=== PATIENT | female | born 1970 | race Caucasian/White ===

== ENCOUNTER 2018-05-02 12:06 | Emergency (ER) | payer SELFPAY ==
[~2018-05-02] VITALS: Ht 149.9 cm; Wt 89.0 kg
[~2018-05-02 12:06] MED LIST: ALBU90AE INH; CEFD300C37 PO; DOXY100T PO; PRED10TA PO
[2018-05-02 12:16] VITALS: BP 115/72
[2018-05-02] MEDS ORDERED: DIPH,PERTUSS(ACELL),TET VAC/PF 0.5 ML IM-VACC ONE ×2 (12:32→13:00)
== END 2018-05-02 12:44 | disposition home or self-care (01) ==
LOC: ED 12:38
DX: T63.301A Toxic effect of unspecified spider venom, accidental (unintentional), initial encounter (principal); J45.909 Unspecified asthma, uncomplicated; Y92.9 Unspecified place or not applicable
CPT/HCPCS: 90471; 90715

== ENCOUNTER 2020-08-20 11:26 | Emergency (ER) | payer OTHER ==
[~2020-08-20] VITALS: Ht 149.9 cm; Wt 99.0 kg
[2020-08-20 11:31] VITALS: BP 148/88
--- NOTE | 2020-08-20 12:17 | NUR ---
Radhika PA at myself at bedside. No active COVID symptoms. Pt states anxiety from the vaccine 4 days ago. Pt is now calm, laying down and cooperative.
--- NOTE | 2020-08-20 12:44 | NUR ---
Lab at bedside.
[2020-08-20] MEDS ORDERED: LORazepam 1MG TABLET ONE (12:49)
[2020-08-20] MEDS ORDERED: LORazepam 1MG TABLET PO ONE (13:00)
--- NOTE | 2020-08-20 13:06 | NUR ---
Pt refuses ativan. Given sprite. Awaiting XRay and lab results.
[2020-08-20 13:16] LABS: BASOPHILS % (AUTO) 1 % (0-1); EOSINOPHILS % (AUTO) 2 % (1-7); LYMPHOCYTES % (AUTO) 42 % (22-44); MEAN CORPUSCULAR HEMOGLOBIN 27.9 pg (27.0-34.8); MEAN PLATELET VOLUME 10.2 fL (7.4-10.4); MONOCYTES % (AUTO) 10 % (2-9); NEUTROPHILS % (AUTO) 45 % (42-75); PLATELET COUNT 131 x10^3/uL (130-400); RED BLOOD COUNT 5.12 x10^6/uL (3.82-5.3); RED CELL DISTRIBUTION WIDTH 16.3 % (9.6-15.2)
[2020-08-20 13:21] LABS: ALANINE AMINOTRANSFERASE 33 U/L (12-78); ALBUMIN 3.3 g/dL (3.4-5.0); ANION GAP 5 mmol/L (5-15); CALCIUM 8.9 mg/dL (8.5-10.1); CHLORIDE 109 mmol/L (98-107); CREATININE 0.64 mg/dL (0.55-1.02)
[2020-08-20 13:23] LABS: ALKALINE PHOSPHATASE 59 U/L (45-117); BILIRUBIN,TOTAL 0.4 mg/dL (0.2-1.0); TOTAL PROTEIN 6.9 g/dL (6.4-8.2)
--- NOTE | 2020-08-20 13:38 | NUR ---
Pt left without signing paperwork. MD Dr. Abernathy aware.
[2020-08-20 13:52] LABS: MD MORPH REVIEW ONLY
[2020-08-20 13:53] LABS: <PLATELET ESTIMATE> ADEQUATE; <RBC MORPHOLOGY> NORMAL; LARGE PLATELETS 1+
== END 2020-08-20 13:50 | disposition home or self-care (01) ==
LOC: ED 13:32
DX: F41.1 Generalized anxiety disorder (principal); J45.909 Unspecified asthma, uncomplicated
CPT/HCPCS: 36415; 71045; 80053; 85025; 99284

== ENCOUNTER → 2020-09-09 | Outpatient (CLI) | payer OTHER | END | disposition home or self-care (01) | LOC: RAD 06:17 | PROVIDERS: ATTEND Surgery | DX: Z01.818 Encounter for other preprocedural examination (principal); E66.01 Morbid (severe) obesity due to excess calories; M19.90 Unspecified osteoarthritis, unspecified site; Z72.4 Inappropriate diet and eating habits | CPT/HCPCS: 71046; 74240 ==